=== PATIENT | female | born 1985 | race Caucasian/White ===

== ENCOUNTER 2023-06-05 09:33 | Outpatient (CLI) | payer OTHER | END 2023-06-05 09:34 | disposition home or self-care (01) | LOC: BURRAD 09:33 | PROVIDERS: ATTEND Family Medicine | DX: M25.561 Pain in right knee (principal) ==

== ENCOUNTER 2024-03-11 17:00 | Emergency (ER) | payer OTHER ==
[2024-03-11] MEDS ORDERED: Lidocaine 1% PF 5 ML VIAL ONE (17:15)
[2024-03-11] MEDS ORDERED: Bacitracin 1 PK ONE (17:40)
== END 2024-03-11 17:45 | disposition home or self-care (01) ==
LOC: BURERS 17:00
DX: T81.30XA Disruption of wound, unspecified, initial encounter (principal); S81.011A Laceration without foreign body, right knee, initial encounter; X58.XXXA Exposure to other specified factors, initial encounter
CPT/HCPCS: 12001; 99283